=== PATIENT | male | born 1965 | race African-American/Black ===

== ENCOUNTER 2024-01-24 11:04 | Outpatient (CLI) | payer BC, SELFPAY | END 2024-01-24 11:05 | disposition home or self-care (01) | LOC: NAV RAD 11:04 | PROVIDERS: ATTEND Family Medicine | DX: M51.362 Other intervertebral disc degeneration, lumbar region with discogenic back pain and lower extremity pain (principal); M47.814 Spondylosis without myelopathy or radiculopathy, thoracic region; M47.816 Spondylosis without myelopathy or radiculopathy, lumbar region; Z98.1 Arthrodesis status | CPT/HCPCS: 72072; 72100 ==